=== PATIENT | female | born 1965 | race Hispanic/Latino ===

== ENCOUNTER 2022-02-23 05:42 | Observation (INO) | payer OTHER ==
[2022-02-20 10:09] LABS: Hematocrit 37.1 % (30.3-42.9); Hemoglobin 12.1 gm/dl (10.1-14.3); Mean Corpuscular HGB Conc 33 % (30-34); Mean Corpuscular Volume 99 fl (79-97); Platelet Count 151 K/mm3 (140-440); Red Blood Count 3.75 M/mm3 (3.65-5.03); Red Cell Distribution Width 12.4 % (13.2-15.2)
[2022-02-20 10:24] LABS: Blood Urea Nitrogen 20 mg/dL (7-17); Calcium 9.3 mg/dL (8.4-10.2); Hemolysis Index 7
[2022-02-20 10:27] LABS: BUN/Creatinine Ratio 29
--- NOTE | 2022-02-20 10:53 | Anesthesia Consultation ---
Anesthesia Consult and Med Hx Date of service: 02/23/22 - Airway Anesthetic Teeth Evaluation: Good ROM Head & Neck: Adequate Mental/Hyoid Distance: Adequate Mallampati Class: Class II Intubation Access Assessment: Probably Good - Pulmonary Exam CTA: Yes - Cardiac Exam Cardiac Exam: RRR - Pre-Operative Health Status ASA Pre-Surgery Classification: ASA3 Proposed Anesthetic Plan: General - Pulmonary Hx Smoking: No Hx Respiratory Symptoms: No Hx Sleep Apnea: No (sleep study scheduled) - Cardiovascular System Hx Hypertension: Yes Hx Heart Attack/AMI: No Hx Percutaneous Transluminal Coronary Angioplasty (PTCA): No Hx Cardia Arrhythmia: Yes (occasional tachycardia; reports prior neg cardiac work up) Hx Pacemaker: No Hx Internal Defibrillator: No Hx Peripheral Vascular Disease: Yes - Central Nervous System Hx Neuromuscular Disorder: No (fibromyalgia) CVA: No - Endocrine Hx Renal Disease: No Hx Liver Disease: No Hx Insulin Dependent Diabetes: No Hx Non-Insulin Dependent Diabetes: No Hx Thyroid Disease: No - Other Systems Hx Obesity: Yes (BMI 37) - Additional Comments Anesthesia Medical History Comments: No hx anesthetic complications. Preop medical eval with PCP scheduled for 02/21/22.
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
[2022-02-23] MEDS ORDERED: MIDAZOLAM 2 MG/2 ML INJ IV NR (06:00)
[2022-02-23] MEDS ORDERED: ceFAZolin/Water 2 GM/20 ML 2 GM/20 ML SYRINGE IV NR (06:00)
[2022-02-23] MEDS ORDERED: ACETAMINOPHEN 500 MG TAB PO SCH (06:00)
[2022-02-23] MEDS ORDERED: LACTATED RINGERS 1,000 ML IV SCH (06:00)
[2022-02-23] MEDS ORDERED: fentaNYL 100 MCG/2 ML INJ ONE (07:22)
[2022-02-23] MEDS ORDERED: propofoL 200 MG/20 ML VIAL IV ONE ×2 (07:22→08:18)
[2022-02-23] MEDS ORDERED: LIDOCAINE MPF (2%) 20 MG/1 ML VIAL 5 ML ONE (07:22)
--- NOTE | 2022-02-23 07:22 | Anesthesia Day of Surgery ---
Anesthesia Day of Surgery - Day of Surgery Patient Examined: Yes Patient H&P Reviewed: Yes Patient is NPO: Yes
[2022-02-23] MEDS ORDERED: HYDROcodone/ACETAMINOPHEN 5-325 MG TAB PO PRN ×2 (07:23→09:52)
[2022-02-23] MEDS ORDERED: ONDANSETRON 4 MG/2 ML INJ IV PRN ×2 (07:23→09:52)
[2022-02-23] MEDS ORDERED: fentaNYL 100 MCG/2 ML INJ IV PRN (07:23)
[2022-02-23] MEDS ORDERED: KETOROLAC 30 MG/1 ML INJ IV PRN (07:23)
[2022-02-23] MEDS ORDERED: MIDAZOLAM 2 MG/2 ML INJ ONE (08:19)
[2022-02-23] MEDS ORDERED: ONDANSETRON 4 MG/2 ML INJ ONE (08:41)
[2022-02-23] MEDS ORDERED: KETOROLAC 30 MG/1 ML INJ ONE (08:41)
[2022-02-23] MEDS ORDERED: dexAMETHasone 20 MG/5 ML VIAL ONE (08:41)
[2022-02-23] MEDS ORDERED: SODIUM CHLORIDE 0.9% IRRIG SOLN 3000 ML IR ONE (08:49)
--- NOTE | 2022-02-23 08:49 | Operative Report ---
Operative Report Operative Report: Date of procedure: 02/23/2022 Pre-operative diagnosis: Postmenopausal bleeding Post-operative diagnosis: Same plus endometrial mass Procedure name(s): Hysteroscopy Surgeon: Dr. 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 What appeared to be approximately 1 to 2 cm endometrial polyp in the left fundal area of the uterus. Right ostia clearly seen left ostia not clearly seen. Also what appeared to be a small less than 1 cm uterine perforation hemostatic at the end of the procedure. Indications: Patient presented with postmenopausal bleeding. Patient was unable to have endometrial biopsy in the office due to cervical stenosis. Decision was made to bring patient to the operating room for exam and anesthesia. Procedure: Patient was taken to the operating room where she was placed under general anesthesia. She was placed in dorsal lithotomy position with legs in Christofer stirrups. She was then prepped and draped in sterile fashion. Great catheterization was done at this time. The anterior lip of the cervix was grasped with a tenaculum and the uterus was sounded to approximately 6 cm. As at this point that the cervix was dilated to allow the passage of a hysteroscope. Uterine cavity was noted to have a above-stated findings in addition to thickened endometrium. Hemostasis was noted to be excellent. Patient was taken to the recovery room awake and in stable condition. Patient was given Ancef prior to the onset of the procedure. All laps and needle counts were correct. Patient tolerated the procedure well.
--- NOTE | 2022-02-23 08:52 | Short Stay Summary ---
Short Stay Documentation Date of service: 02/23/22 - History H&P: dictated Social history: other (see hpi) - Allergies and Medications Current Medications: Allergies No Known Allergies Allergy (Unverified 02/15/22 17:00) Home Medications Medication Instructions Recorded Confirmed Last Taken Type Acetaminophen/Diphenhydramine 2 each PO Q8H PRN 02/15/22 02/15/22 Unknown History [Tylenol Pm Ex-Strength Caplet] Cyanocobalamin (Vitamin B-12) 5,000 mcg PO DAILY 02/15/22 02/15/22 Unknown History [Vitamin B-12] Cyclobenzaprine [Flexeril] 10 mg PO TID PRN 02/15/22 02/15/22 Unknown History DULoxetine [Cymbalta] 30 mg PO HS 02/15/22 02/15/22 Unknown History Ferrous Sulfate [Iron 325 MG] 325 mg PO DAILY 02/15/22 02/15/22 Unknown History Fluticasone [Flonase] 2 spray NS QDAY 02/15/22 02/15/22 Unknown History Folic Acid [Folvite] 1 mg PO QDAY 02/15/22 02/15/22 Unknown History Furosemide [Lasix] 20 mg PO QDAY 02/15/22 02/15/22 Unknown History Ibuprofen [Motrin] 800 mg PO Q8HR PRN 02/15/22 02/15/22 Unknown History Levocetirizine Dihydrochloride 5 mg PO DAILY 02/15/22 02/15/22 Unknown History [Xyzal] Melatonin [Melatonin 2.5MG CHEW] 2.5 mg PO HS 02/15/22 02/15/22 Unknown History Multivitamin [Multiple Vitamins] 1 each PO DAILY 02/15/22 02/15/22 Unknown History Omeprazole 40 mg PO DAILY 02/15/22 02/15/22 Unknown History Rosuvastatin Calcium [Crestor] 20 mg PO HS 02/15/22 02/15/22 Unknown History Ibuprofen [Motrin 800 MG tab] 800 mg PO Q8HR PRN #30 tablet 02/23/22 Unknown Rx Metoprolol [Lopressor TAB] 50 mg PO DAILY 02/23/22 02/23/22 02/23/22 06:00 History oxyCODONE /ACETAMINOPHEN [Percocet 1 tab PO Q4HR #10 tab 02/23/22 Unknown Rx 5/325] Active Medications Acetaminophen (Acetaminophen 500 Mg Tab) 1,000 mg PO PREOP DEB Stop: 02/23/22 23:59 Last Admin: 02/23/22 06:39 Dose: 1,000 mg Hydrocodone Bitart/Acetaminophen (Hydrocodone/Acetaminophen 5-325 Mg Tab) 2 each PO ONCE PRN PRN Reason: Pain, Moderate (4-6) Stop: 02/23/22 13:00 Fentanyl (Fentanyl 100 Mcg/2 Ml Inj) 50 mcg IV Q5MIN PRN PRN Reason: Pain , Severe (7-10) Stop: 02/23/22 20:00 Lactated Ringer's (Lactated Ringers) 1,000 mls @ 100 mls/hr IV DIRECT DEB Stop: 02/23/22 23:59 Last Admin: 02/23/22 06:47 Dose: 100 mls/hr Cefazolin Sodium (Ancef/Sterile Water 2 Gm/20 Ml) 2 gm in 20 mls @ 80 mls/hr IV PREOP NR; Protocol Stop: 02/24/22 06:00 Ketorolac Tromethamine (Ketorolac 30 Mg/1 Ml Inj) 30 mg IV ONCE PRN PRN Reason: Pain, Moderate (4-6) Stop: 02/23/22 13:00 Midazolam HCl (Midazolam 2 Mg/2 Ml Inj) 2 mg IV PREOP NR Stop: 02/23/22 20:00 Last Admin: 02/23/22 07:50 Dose: 2 mg Ondansetron HCl (Ondansetron 4 Mg/2 Ml Inj) 4 mg IV ONCE PRN PRN Reason: Nausea And Vomiting Stop: 02/23/22 13:00 - Brief post op/procedure progress note Date of procedure: 02/23/22 Pre-op diagnosis: post menopausal bleeding Post-op diagnosis: same Procedure: hysteroscopy removal of uterine mass D&C Anesthesia: other (LMA) Findings: see op notes Surgeon: ADEN CABALLERO Estimated blood loss: none Pathology: list (uterine contents) Specimen disposition: to lab Condition: stable - Hospital course Hospital course: Patient admitted for above-stated procedure. Patient underwent procedure that was not complicated. Patient will be discharged home once recovery is completed and she has met discharge criteria - Disposition Condition at discharge: Good Disposition: 01 HOME / SELF CARE / HOMELESS - Discharge Diagnoses (1) Postmenopausal bleeding Status: Acute Short Stay Discharge Plan Activity: no restrictions Diet: regular, low salt Follow up with: FRANKO CORREA MD [Primary Care Provider] - 7 Days ADEN CABALLERO MD [Staff Physician] - 7 Days Prescriptions: Ibuprofen [Motrin 800 MG tab] 800 mg PO Q8HR PRN #30 tablet PRN Reason: Pain, Moderate (4-6) oxyCODONE /ACETAMINOPHEN [Percocet 5/325] 1 tab PO Q4HR #10 tab
--- NOTE | 2022-02-23 09:47 | Event Note ---
Date: 02/23/22 Findings of surgery d/w pt including fluid deficiet and possible uterine perforation that was not bleeding at end of the procedure not was it confirmed by hysteroscopy. Pt did not have laproscoy. I d/w that we will monitor labs and vitals at this time and if any s/sx of internal bleeding will return to OR for dx laproacopy. All questions were addressed and answered. Pt currently stable and w/o c/o. Only saw minimal spotting when she wiped when she went to the bathroom.
[2022-02-23] MEDS ORDERED: ACETAMINOPHEN 325 MG TAB PO PRN (09:52)
[2022-02-23] MEDS ORDERED: MORPHINE 4 MG/1 ML INJ IV PRN (09:52)
[2022-02-23] MEDS ORDERED: IBUPROFEN 800 MG TAB PO PRN (09:52)
[2022-02-23] MEDS ORDERED: ceFAZolin/NS 1 GM/50 ML 1 GM/50 ML BAG IV SCH ×2 (10:00→13:00)
--- NOTE | 2022-02-23 12:01 | Post Anesthesia Evaluation ---
- Post Anesthesia Evaluation Patient Participated: Yes Airway Patent: Yes Stable Respiratory Function: Yes Nausea/Vomiting: No Temp > 96.8F: Yes Pain Manageable: Yes Adequeate Hydration: Yes Anesthesia Complications: No
[2022-02-23 14:40] LABS: Hematocrit 34.8 % (30.3-42.9); Hemoglobin 11.6 gm/dl (10.1-14.3)
[2022-02-23 14:57] LABS: Blood Urea Nitrogen 21 mg/dL (7-17); Calcium 9.1 mg/dL (8.4-10.2); Hemolysis Index 13
[2022-02-23 16:07] VITALS: BP 129/78
[2022-02-23 16:44] LABS: BUN/Creatinine Ratio 30
--- NOTE | 2022-02-23 17:33 | Event Note ---
Date: 02/23/22 Pt remains stable without any s/sx of bleeding or fluid overload. Will d/c home at this time and f/u in the office in one week.
== END 2022-02-24 06:56 | disposition home or self-care (01) ==
LOC: OR 05:42 → EDBD 08:00 → OB 09:55
PROVIDERS: ADMIT Obstetrics & Gynecology; ATTEND Obstetrics & Gynecology
DX: N95.0 Postmenopausal bleeding (principal); Z20.822 Contact with and (suspected) exposure to COVID-19; I10 Essential (primary) hypertension; Z79.899 Other long term (current) drug therapy; Z98.890 Other specified postprocedural states
CPT/HCPCS: 36415; 58558; 80048; 85014; 85018; 85027; 88305; G0378; J0690; J1100; J1885; J2250; J2405; J2704; J3010; J7120; U0003